=== PATIENT | male | born 1955 | race Caucasian/White ===

== ENCOUNTER 2016-07-18 13:40 | Inpatient (IN) | payer BC ==
[~2016-07-18 13:40] MED LIST: ASPIRIN81 M1 PO; ATENOLOL/CHLORT1 TA PO; CELEBREX200 M1 PO; CELEBREX200 MG PO; COREG12.5 M1 PO; COREG3.125 MG PO; COREG6.25 MG PO; HYDROCHLOROTHIA25 M1 PO; HYDROCHLOROTHIA25 MG PO; IBUPROFEN800 MG PO; LEVAQUIN750 M1 PO; MUCINEX1200 MG PO; NICOTINE PATCH1 EAC2 TP; NORVASC2.5 MG PO; NORVASC5 M2 PO; PERCOCET 5MG/AP1 TA1 PO; PREDNISONE10 M1 PO; TYLENOL325 M1 PO; TYLENOL325 M2 PO
[2016-07-18] MEDS ORDERED: SYMBICORT 160-1 PUFF INH (13:44)
[2016-07-18] MEDS ORDERED: VENTOLIN HFA18 G2 INH (13:48)
[2016-07-18 15:05] LABS: BASO % 0.1 % (0-2); EOS % 1.6 % (0-7); EOSINOPHIL ABSOLUTE COUNT 0.1 tho/cmm (0.0-0.7); HCT-HEMATOCRIT 43.3 % (36.0-53.5); HGB-HEMOGLOBIN 16.9 gm/dl (13.5-17.0); IMMATURE GRANULOCYTES ABSOLUTE 0.01 tho/cmm (0-0.03); IMMATURE GRANULOCYTES PERCENT 0.1 % (0-0.3); LYMPH % 14.6 % (20-45); MCH (MEAN CORPUSCULAR HGB) 34.9 pg (28.0-32.0); MCV (MEAN CELL VOLUME) 89.5 fl (82.0-96.0); MEAN PLATELET VOLUME 9.6 cmc (9.4-12.4); MONO % 14.9 % (0-12); NEUTROPHIL ABSOLUTE COUNT 4.8 tho/cmm (1.6-8.0); NEUTROPHIL-AUTOMATED 4.8 tho/cmm (1.6-8.0); NEUTROPHILS % 68.7 % (40-80); PLATELET COUNT 157 tho/cmm (150-450); RED BLOOD COUNT 4.84 mil/cmm (4.40-5.70)
[2016-07-18 15:24] LABS: ALB/GLOB RATIO 1.3 (0.8-2.0); ALBUMIN 3.9 g/dl (3.5-5.0); ALKALINE PHOSPHATASE 82 U/L (33-138); ALT/SGPT 50 U/L (12-78); ANION GAP 11 mmol/L (0-20); AST/SGOT 75 U/L (10-40); BILIRUBIN,TOTAL 1.1 mg/dl (0.0-1.5); BLOOD UREA NITROGEN 6 mg/dl (6-24); CALCIUM 8.7 mg/dl (8.5-10.5); CARBON DIOXIDE-VENOUS 38 mmol/L (22-32); CHLORIDE 64 mmol/l (96-110); CREATININE 0.56 mg/dl (0.60-1.30); GLUCOSE 104 mg/dL (70-110); POTASSIUM 3.4 mmol/L (3.7-5.1); eGFR VALUE FOR BLACK >90 mL/Min
[2016-07-18 15:26] LABS: SODIUM 110 mmol/L (135-145)
[2016-07-18 15:41] LABS: URINE BILIRUBIN NEGATIVE (NEG); URINE BLOOD SMALL (NEG); URINE COLOR YELLOW; URINE GLUCOSE (UA) NEGATIVE (NEG); URINE KETONE MODERATE (NEG); URINE LEUKOCYTE ESTERASE NEGATIVE (NEG); URINE NITRITE NEGATIVE (NEG); URINE PROTEIN NEGATIVE (NEG); URINE SPECIFIC GRAVITY 1.005 (1.003-1.030)
[2016-07-18 15:42] LABS: URINE APPEARANCE HAZY
[2016-07-18 15:51] LABS: URINE EPITHELIAL CELLS 0 /[HPF] (0-10)
[2016-07-18 17:35] LABS: OSMOLALITY 219 mOsm/kg (275-295)
[2016-07-18 17:36] LABS: URINE PRT/CR RATIO 0.4 Ratio (0.0-0.20); URINE TOTAL PROTEIN-RANDOM 5.7 mg/dl (<11.8)
[2016-07-18 17:51] LABS: MAGNESIUM 1.6 mg/dl (1.3-2.6)
[2016-07-18 21:42] LABS: BLOOD UREA NITROGEN 4 mg/dl (6-24); CALCIUM 8.6 mg/dl (8.5-10.5); CARBON DIOXIDE-VENOUS 39 mmol/L (22-32); CHLORIDE 70 mmol/l (96-110); CREATININE 0.57 mg/dl (0.60-1.30); GLUCOSE 97 mg/dL (70-110); eGFR VALUE FOR BLACK >90 mL/Min
[2016-07-18 21:45] LABS: ANION GAP 11 mmol/L (0-20)
[2016-07-18 21:47] LABS: SODIUM 117 mmol/L (135-145)
[2016-07-18 21:48] LABS: POTASSIUM 2.8 mmol/L (3.7-5.1)
[2016-07-18 22:21] LABS: ALCOHOL (ETOH) <10 mg/dl (<10)
[2016-07-18 22:26] LABS: BLOOD UREA NITROGEN 5 mg/dl (6-24); CALCIUM 8.7 mg/dl (8.5-10.5); CARBON DIOXIDE-VENOUS 38 mmol/L (22-32); CHLORIDE 71 mmol/l (96-110); CREATININE 0.54 mg/dl (0.60-1.30); GLUCOSE 100 mg/dL (70-110); eGFR VALUE FOR BLACK >90 mL/Min
[2016-07-18 22:27] LABS: ANION GAP 10 mmol/L (0-20)
[2016-07-18 22:28] LABS: SODIUM 116 mmol/L (135-145)
[2016-07-18 22:29] LABS: POTASSIUM 2.8 mmol/L (3.7-5.1)
[2016-07-18 22:33] LABS: OSMOLALITY 236 mOsm/kg (275-295)
[2016-07-19 00:38] LABS: ARTERIAL BLD GAS O2 SATURATION 92 % (95-98); ARTERIAL BLOOD GAS PCO2 60 mmHg (32-45); ARTERIAL PO2 62 mmHg (70-100); BICARBONATE 40 mmol/L (21-28); BLOOD GAS BASE EXCESS 13 mM/L (-/+3); PH 7.44 Units (7.35-7.45)
[2016-07-19 00:40] LABS: ABG CO2 ARTERIAL 42 mmol/L (21-27)
[2016-07-19 01:26] LABS: BLOOD UREA NITROGEN 7 mg/dl (6-24); CALCIUM 8.5 mg/dl (8.5-10.5); CARBON DIOXIDE-VENOUS 39 mmol/L (22-32); CHLORIDE 75 mmol/l (96-110); CREATININE 0.61 mg/dl (0.60-1.30); GLUCOSE 114 mg/dL (70-110); eGFR VALUE FOR BLACK >90 mL/Min
[2016-07-19 01:37] LABS: ANION GAP 8 mmol/L (0-20); POTASSIUM 2.9 mmol/L (3.7-5.1); SODIUM 119 mmol/L (135-145)
[2016-07-19 04:22] LABS: BASO % 0.2 % (0-2); EOSINOPHIL ABSOLUTE COUNT 0.1 tho/cmm (0.0-0.7); HCT-HEMATOCRIT 41.4 % (36.0-53.5); HGB-HEMOGLOBIN 15.2 gm/dl (13.5-17.0); IMMATURE GRANULOCYTES ABSOLUTE 0.02 tho/cmm (0-0.03); IMMATURE GRANULOCYTES PERCENT 0.3 % (0-0.3); LYMPH % 16.9 % (20-45); MCH (MEAN CORPUSCULAR HGB) 33.9 pg (28.0-32.0); MCV (MEAN CELL VOLUME) 92.2 fl (82.0-96.0); MEAN PLATELET VOLUME 9.4 cmc (9.4-12.4); MONO % 13.2 % (0-12); MONOCYTE ABSOLUTE COUNT 0.8 tho/cmm (0.0-1.2); NEUTROPHIL ABSOLUTE COUNT 4.1 tho/cmm (1.6-8.0); NEUTROPHIL-AUTOMATED 4.1 tho/cmm (1.6-8.0); NEUTROPHILS % 68.4 % (40-80); PLATELET COUNT 152 tho/cmm (150-450); RED BLOOD COUNT 4.49 mil/cmm (4.40-5.70); RED CELL DISTRIBUTION WIDTH 12.1 % (12.4-16.4)
[2016-07-19 04:26] LABS: MCHC MEAN CORPUSCULAR HGB CONC 36.7 % (32.0-36.0)
[2016-07-19 04:36] LABS: BLOOD UREA NITROGEN 7 mg/dl (6-24); CALCIUM 8.3 mg/dl (8.5-10.5); CARBON DIOXIDE-VENOUS 37 mmol/L (22-32); CHLORIDE 75 mmol/l (96-110); CREATININE 0.49 mg/dl (0.60-1.30); GLUCOSE 120 mg/dL (70-110); POTASSIUM 3.3 mmol/L (3.7-5.1); eGFR VALUE FOR BLACK >90 mL/Min
[2016-07-19 04:40] LABS: ANION GAP 8 mmol/L (0-20); SODIUM 117 mmol/L (135-145)
[2016-07-19 09:48] LABS: ANION GAP 8 mmol/L (0-20); BLOOD UREA NITROGEN 6 mg/dl (6-24); CALCIUM 8.3 mg/dl (8.5-10.5); CARBON DIOXIDE-VENOUS 37 mmol/L (22-32); CHLORIDE 76 mmol/l (96-110); CREATININE 0.52 mg/dl (0.60-1.30); GLUCOSE 149 mg/dL (70-110); POTASSIUM 3.4 mmol/L (3.7-5.1); eGFR VALUE FOR BLACK >90 mL/Min
[2016-07-19 09:59] LABS: SODIUM 118 mmol/L (135-145)
--- NOTE | 2016-07-20 07:06 | NUR ---
0555-COMPLETED LAB DRAW PER PATIENT'S PICC LINE. NO CHANGE IN PATIENT STATUS NOTED AT THIS TIME. LET PATIENT KNOW I WAS GOING TO SEND LAB OFF AND RETURN SHORTLY WITH HIS NEW NURSE. 0557-PATIENT'S BED ALARM GOING OFF. PATIENT FOUND GETTING OOB, PULLING IV TUBING AND ON PICC LINE TO GET OOB. PATIENT STATES HE IS LEAVING, NOW. ATTEMPTED TO REDIRECT PATIENT, NOT SUCCESSFUL. PATIENT OOB NOW AND STAFF ASSISTING PATIENT IN THE HALLS. PATIENT STATES HE IS GOING TO LEAVE. PATIENT RAISED HAND AT NURSE X2 WHEN TRYING TO REDIRECT. 0610-CALL PLACED TO SECURITY FOR ASSISTANCE. PATIENT AGREED TO GET INTO WHEELCHAIR. RETURNED TO ROOM. CALL PLACED TO IMS. SEE ORDERS. PATIENT GIVEN ATIVAN IVP, SEE MAR. ASSISTED PATIENT TO RETURN TO BED. PATIENT WAS 79% ON RA. CPAP PLACED. PATIENT RESTING.
--- NOTE | 2016-07-20 08:00 | NUR ---
FIRST ABG'S AFTER BEING ON BIPAP PH 7.18, PC02 > 104, C02- 47, BICARB 44. NOTIFIED . ORDERED TO GIVE 3 DOSE OF ROMAZICON. PT WAKING UP MORE. PULLING BIPAP OFF. GAVE NOTIFIED PT'S SON RUBIN. REPEAT ABGS @ 0900 PH 7.16, PC02 > 104, C02 44, BICAB 41. NOTIFIED IMS. ORDER TO TX TO CCU. NOTIFIED DR. RAY ORDER TO INTUBATE START PRECEDEX.
[2016-07-20 08:01] LABS: ARTERIAL BLD GAS O2 SATURATION 96 % (95-98); ARTERIAL PO2 108 mmHg (70-100); BICARBONATE 44 mmol/L (21-28); BLOOD GAS BASE EXCESS 9 mM/L (-/+3)
[2016-07-20 08:04] LABS: ABG CO2 ARTERIAL 47 mmol/L (21-27); ARTERIAL BLOOD GAS PCO2 >104 mmHg (32-45); PH 7.18 Units (7.35-7.45)
[2016-07-20 09:01] LABS: ARTERIAL BLD GAS O2 SATURATION 98 % (95-98); BICARBONATE 41 mmol/L (21-28); BLOOD GAS BASE EXCESS 6 mM/L (-/+3)
[2016-07-20 09:03] LABS: ABG CO2 ARTERIAL 44 mmol/L (21-27); ARTERIAL BLOOD GAS PCO2 >104 mmHg (32-45); PH 7.16 Units (7.35-7.45)
[2016-07-20 09:04] LABS: ARTERIAL PO2 138 mmHg (70-100)
[2016-07-20 11:32] LABS: ARTERIAL BLD GAS O2 SATURATION 96 % (95-98); BICARBONATE 36 mmol/L (21-28); BLOOD GAS BASE EXCESS 7 mM/L (-/+3); PH 7.31 Units (7.35-7.45)
[2016-07-20 11:34] LABS: ARTERIAL BLOOD GAS PCO2 74 mmHg (32-45); ARTERIAL PO2 82 mmHg (70-100)
[2016-07-20 11:35] LABS: ABG CO2 ARTERIAL 38 mmol/L (21-27)
[2016-07-20 11:54] LABS: BASO % 0.1 % (0-2); EOS % 0.6 % (0-7); HCT-HEMATOCRIT 41.4 % (36.0-53.5); HGB-HEMOGLOBIN 14.3 gm/dl (13.5-17.0); IMMATURE GRANULOCYTES ABSOLUTE 0.02 tho/cmm (0-0.03); IMMATURE GRANULOCYTES PERCENT 0.3 % (0-0.3); LYMPH % 12.7 % (20-45); LYMPH ABSOLUTE COUNT 0.9 tho/cmm (0.8-4.5); MCH (MEAN CORPUSCULAR HGB) 33.6 pg (28.0-32.0); MEAN PLATELET VOLUME 9.5 cmc (9.4-12.4); MONO % 8.4 % (0-12); MONOCYTE ABSOLUTE COUNT 0.6 tho/cmm (0.0-1.2); NEUTROPHIL ABSOLUTE COUNT 5.5 tho/cmm (1.6-8.0); NEUTROPHIL-AUTOMATED 5.5 tho/cmm (1.6-8.0); NEUTROPHILS % 77.9 % (40-80); PLATELET COUNT 138 tho/cmm (150-450); RED BLOOD COUNT 4.26 mil/cmm (4.40-5.70); RED CELL DISTRIBUTION WIDTH 12.7 % (12.4-16.4); WHITE BLOOD COUNT 7.1 tho/cmm (4.0-10.0)
[2016-07-20 11:55] LABS: MCV (MEAN CELL VOLUME) 97.2 fl (82.0-96.0)
[2016-07-20 11:56] LABS: MCHC MEAN CORPUSCULAR HGB CONC 34.5 % (32.0-36.0)
[2016-07-20 12:14] LABS: ALB/GLOB RATIO 1.2 (0.8-2.0); ALBUMIN 3.3 g/dl (3.5-5.0); ALKALINE PHOSPHATASE 66 U/L (33-138); ALT/SGPT 37 U/L (12-78); BLOOD UREA NITROGEN 5 mg/dl (6-24); CALCIUM 7.9 mg/dl (8.5-10.5); CARBON DIOXIDE-VENOUS 37 mmol/L (22-32); CHLORIDE 83 mmol/l (96-110); GLUCOSE 180 mg/dL (70-110); SODIUM 124 mmol/L (135-145)
[2016-07-20 12:18] LABS: ANION GAP 8 mmol/L (0-20); CREATININE 0.81 mg/dl (0.60-1.30); eGFR VALUE FOR BLACK >90 mL/Min
[2016-07-20 12:19] LABS: AST/SGOT 38 U/L (10-40); BILIRUBIN,TOTAL 0.3 mg/dl (0.0-1.5); POTASSIUM 3.8 mmol/L (3.7-5.1)
[2016-07-20 16:08] LABS: ABG CO2 ARTERIAL 37 mmol/L (21-27); ARTERIAL BLD GAS O2 SATURATION 89 % (95-98); ARTERIAL BLOOD GAS PCO2 42 mmHg (32-45); BICARBONATE 36 mmol/L (21-28); BLOOD GAS BASE EXCESS 12 mM/L (-/+3); PH 7.54 Units (7.35-7.45)
[2016-07-20 16:10] LABS: ARTERIAL PO2 48 mmHg (70-100)
[2016-07-21 04:45] LABS: BASO % 0.2 % (0-2); EOS % 0.7 % (0-7); EOSINOPHIL ABSOLUTE COUNT 0.1 tho/cmm (0.0-0.7); HCT-HEMATOCRIT 42.8 % (36.0-53.5); HGB-HEMOGLOBIN 14.8 gm/dl (13.5-17.0); IMMATURE GRANULOCYTES ABSOLUTE 0.03 tho/cmm (0-0.03); IMMATURE GRANULOCYTES PERCENT 0.4 % (0-0.3); LYMPH % 11.5 % (20-45); MCH (MEAN CORPUSCULAR HGB) 33.6 pg (28.0-32.0); MCHC MEAN CORPUSCULAR HGB CONC 34.6 % (32.0-36.0); MCV (MEAN CELL VOLUME) 97.3 fl (82.0-96.0); MEAN PLATELET VOLUME 9.4 cmc (9.4-12.4); MONO % 10.7 % (0-12); MONOCYTE ABSOLUTE COUNT 0.9 tho/cmm (0.0-1.2); NEUTROPHIL ABSOLUTE COUNT 6.4 tho/cmm (1.6-8.0); NEUTROPHIL-AUTOMATED 6.4 tho/cmm (1.6-8.0); NEUTROPHILS % 76.5 % (40-80); PLATELET COUNT 137 tho/cmm (150-450); RED CELL DISTRIBUTION WIDTH 12.7 % (12.4-16.4); WHITE BLOOD COUNT 8.4 tho/cmm (4.0-10.0)
[2016-07-21 04:57] LABS: ANION GAP 9 mmol/L (0-20); BLOOD UREA NITROGEN 6 mg/dl (6-24); CALCIUM 8.7 mg/dl (8.5-10.5); CARBON DIOXIDE-VENOUS 33 mmol/L (22-32); CHLORIDE 88 mmol/l (96-110); CREATININE 0.68 mg/dl (0.60-1.30); GLUCOSE 163 mg/dL (70-110); MAGNESIUM 1.9 mg/dl (1.3-2.6); PHOSPHOROUS 2.4 mg/dl (2.5-4.9); POTASSIUM 3.6 mmol/L (3.7-5.1); SODIUM 126 mmol/L (135-145); eGFR VALUE FOR BLACK >90 mL/Min
[2016-07-21 05:25] LABS: ABG CO2 ARTERIAL 37 mmol/L (21-27); ARTERIAL BLD GAS O2 SATURATION 95 % (95-98); ARTERIAL BLOOD GAS PCO2 50 mmHg (32-45); BICARBONATE 35 mmol/L (21-28); BLOOD GAS BASE EXCESS 10 mM/L (-/+3); PH 7.46 Units (7.35-7.45)
[2016-07-21 05:27] LABS: ARTERIAL PO2 70 mmHg (70-100)
[2016-07-22 04:10] LABS: BASO % 0.2 % (0-2); EOS % 1.8 % (0-7); EOSINOPHIL ABSOLUTE COUNT 0.2 tho/cmm (0.0-0.7); HCT-HEMATOCRIT 39.6 % (36.0-53.5); HGB-HEMOGLOBIN 13.7 gm/dl (13.5-17.0); IMMATURE GRANULOCYTES ABSOLUTE 0.01 tho/cmm (0-0.03); IMMATURE GRANULOCYTES PERCENT 0.1 % (0-0.3); LYMPH % 16.9 % (20-45); LYMPH ABSOLUTE COUNT 1.4 tho/cmm (0.8-4.5); MCH (MEAN CORPUSCULAR HGB) 33.4 pg (28.0-32.0); MCHC MEAN CORPUSCULAR HGB CONC 34.6 % (32.0-36.0); MCV (MEAN CELL VOLUME) 96.6 fl (82.0-96.0); MEAN PLATELET VOLUME 9.4 cmc (9.4-12.4); MONO % 14.4 % (0-12); MONOCYTE ABSOLUTE COUNT 1.2 tho/cmm (0.0-1.2); NEUTROPHIL ABSOLUTE COUNT 5.6 tho/cmm (1.6-8.0); NEUTROPHIL-AUTOMATED 5.6 tho/cmm (1.6-8.0); NEUTROPHILS % 66.6 % (40-80); PLATELET COUNT 131 tho/cmm (150-450); WHITE BLOOD COUNT 8.4 tho/cmm (4.0-10.0)
[2016-07-22 04:34] LABS: ALBUMIN 3.1 g/dl (3.5-5.0); ALKALINE PHOSPHATASE 60 U/L (33-138); ALT/SGPT 27 U/L (12-78); ANION GAP 8 mmol/L (0-20); AST/SGOT 22 U/L (10-40); BILIRUBIN,DIRECT 0.1 mg/dl (0.0-0.3); BILIRUBIN,INDIRECT 0.3 mg/dL (0.0-1.0); BILIRUBIN,TOTAL 0.4 mg/dl (0.0-1.5); BLOOD UREA NITROGEN 9 mg/dl (6-24); CALCIUM 8.3 mg/dl (8.5-10.5); CARBON DIOXIDE-VENOUS 34 mmol/L (22-32); CHLORIDE 88 mmol/l (96-110); CREATININE 0.61 mg/dl (0.60-1.30); GLUCOSE 132 mg/dL (70-110); MAGNESIUM 1.6 mg/dl (1.3-2.6); POTASSIUM 3.6 mmol/L (3.7-5.1); SODIUM 126 mmol/L (135-145); eGFR VALUE FOR BLACK >90 mL/Min
[2016-07-24 05:46] LABS: ANION GAP 11 mmol/L (0-20); BLOOD UREA NITROGEN 15 mg/dl (6-24); CARBON DIOXIDE-VENOUS 32 mmol/L (22-32); CHLORIDE 98 mmol/l (96-110); CREATININE 0.67 mg/dl (0.60-1.30); GLUCOSE 109 mg/dL (70-110); POTASSIUM 4.5 mmol/L (3.7-5.1); SODIUM 136 mmol/L (135-145); eGFR VALUE FOR BLACK >90 mL/Min
[2016-07-24] MEDS ORDERED: B-1100 M1 PO (09:48)
[2016-07-24] MEDS ORDERED: FOLIC ACID1 M1 PO (09:49)
[2016-07-24] MEDS ORDERED: MULTIVITAMINS1 EAC6 PO (09:50)
[2016-07-24] MEDS ORDERED: NICODERM CQ1 EAC2 TD (09:52)
[2016-07-24] MEDS ORDERED: [UNRECOGNIZED DRUG - REMARK] (09:56)
[2017-01-07] MEDS ORDERED: CEFDINIR300 M1 PO (13:50)
[2017-01-07] MEDS ORDERED: KLOR-CON 1010 ME1 PO (13:54)
[2017-01-07] MEDS ORDERED: LASIX20 M1 PO (13:54)
[2017-01-07] MEDS ORDERED: PREDNISONE10 M1 PO (14:00)
== END 2016-07-24 16:50 | DRG 208 ==
LOC: EDMED 13:40 → EMR2 17:28 → PCUB 19:44 → CCU 07-20 09:11 → 5WE 07-23 13:45
PROVIDERS: Emergency Medicine; Hospitalist; Internal Medicine; Internal Medicine Nephrology; Internal Medicine Pulmonary Disease; Registered Nurse; ADMIT Family Medicine
PROC: 5A09357 Assistance with Respiratory Ventilation, Less than 24 Consecutive Hours, Continuous Positive Airway Pressure (ICD-10-PCS; 2016-07-18)
PROC: 02HV33Z Insertion of Infusion Device into Superior Vena Cava, Percutaneous Approach (ICD-10-PCS; 2016-07-19)
PROC: 0BH17EZ Insertion of Endotracheal Airway into Trachea, Via Natural or Artificial Opening (ICD-10-PCS; principal; 2016-07-20)
PROC: 5A1945Z Respiratory Ventilation, 24-96 Consecutive Hours (ICD-10-PCS; 2016-07-20)
DX: J96.22 Acute and chronic respiratory failure with hypercapnia (principal); G92 Toxic encephalopathy; F10.231 Alcohol dependence with withdrawal delirium; E22.2 Syndrome of inappropriate secretion of antidiuretic hormone; J44.1 Chronic obstructive pulmonary disease with (acute) exacerbation; I95.2 Hypotension due to drugs; J96.21 Acute and chronic respiratory failure with hypoxia; G47.33 Obstructive sleep apnea (adult) (pediatric); E86.1 Hypovolemia; R07.9 Chest pain, unspecified; Z99.81 Dependence on supplemental oxygen; I10 Essential (primary) hypertension; Z79.82 Long term (current) use of aspirin; F17.210 Nicotine dependence, cigarettes, uncomplicated; R26.9 Unspecified abnormalities of gait and mobility; E66.09 Other obesity due to excess calories; E87.6 Hypokalemia; E83.51 Hypocalcemia; I44.0 Atrioventricular block, first degree
CPT/HCPCS: C1751; C9113; G0480; G8987-GO-CI; G8988-GO-CH; J1650; J2060; J2250; J2597; J3010; J3411; J3475; J7030; P9045